=== PATIENT | female | born 1985 | race Two or more races ===

== ENCOUNTER 2019-06-22 13:21 | Emergency (ER) | payer OTHER ==
[~2019-06-22] VITALS: Ht 162.6 cm; Wt 57.3 kg
--- NOTE | 2019-06-22 13:50 | PHYS DOC ---
Past History Past Medical History: No Pertinent History Past Surgical History: No Surgical History Alcohol Use: Occasionally Adult General Chief Complaint Chief Complaint: Hemoptysis HPI HPI Patient is a 33 year old female who presents with complaint of coughing up blood. Patient states that her symptoms started shortly prior to arrival. 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 She states that she came to work not experiencing any known symptoms. Her previous exposure took place 3 weeks ago. She had COVID-19 testing done at that time which was negative. States that suddenly she started to cough up which she quantifies as large amounts of bright red blood. Denies any significant past medical history. Patient was brought to the emergency department immediately from the [facility]iatric [employer] for evaluation in the emergency department. Denies fevers, nausea, chest pain, shortness of breath, or abdominal pain. Review of Systems Review of Systems Constitutional: Denies fever or chills [] Eyes: Denies change in visual acuity, redness, or eye pain [] HENT: Denies nasal congestion or sore throat [] Respiratory: Hemoptysis, denies shortness of breath [] Cardiovascular: Denies chest pain or edema [] GI: Denies abdominal pain, nausea, vomiting, bloody stools or diarrhea [] : Denies dysuria or hematuria [] Musculoskeletal: Denies back pain or joint pain [] Integument: Denies rash or skin lesions [] Neurologic: Denies headache, focal weakness or sensory changes [] All other systems were reviewed and found to be within normal limits, except as documented in this note. Allergies Allergies Allergies Coded Allergies Type Severity Reaction Last Updated Verified No Known Drug Allergies 06/22/19 No Physical Exam Physical Exam Constitutional: Alert, afebrile, appears anxious but in no acute respiratory distress. [] HENT: Normocephalic, atraumatic, bilateral external ears normal, oropharynx moist, no oral exudates, nose normal. [] Eyes: PERRLA, EOMI, conjunctiva normal, no discharge. [] Neck: Normal range of motion, no tenderness, supple, no stridor. [] Cardiovascular: Tachycardia, regular rhythm, no murmur [] Lungs & Thorax: Bilateral breath sounds clear to auscultation [] Abdomen: Bowel sounds normal, soft, no tenderness, no masses, no pulsatile masses. [] Skin: Warm, dry, no erythema, no rash. [] Back: No tenderness, no CVA tenderness. [] Extremities: No tenderness, no cyanosis, no clubbing, ROM intact, no edema. [] Neurologic: Alert and oriented X 3, normal motor function, normal sensory function, no focal deficits noted. [] Current Patient Data Vital Signs Vital Signs Date Time Temp Pulse Resp B/P (MAP) Pulse Ox O2 Delivery O2 Flow Rate FiO2 06/22/19 13:21 98.6 109 28 139/79 (99) 100 Nasal Cannula Lab Results Laboratory Tests Test 06/22/19 13:35 06/22/19 13:45 White Blood Count 7.4 x10^3/uL Red Blood Count 4.42 x10^6/uL Hemoglobin 13.2 g/dL Hematocrit 39.0 % Mean Corpuscular Volume 88 fL Mean Corpuscular Hemoglobin 30 pg Mean Corpuscular Hemoglobin Concent 34 g/dL Red Cell Distribution Width 13.4 % Platelet Count 243 x10^3/uL Neutrophils (%) (Auto) 70 % Lymphocytes (%) (Auto) 23 % Monocytes (%) (Auto) 5 % Eosinophils (%) (Auto) 1 % Basophils (%) (Auto) 0 % Neutrophils # (Auto) 5.2 x10^3uL Lymphocytes # (Auto) 1.7 x10^3/uL Monocytes # (Auto) 0.4 x10^3/uL Eosinophils # (Auto) 0.1 x10^3/uL Basophils # (Auto) 0.0 x10^3/uL Sodium Level 137 mmol/L Potassium Level 3.4 mmol/L Chloride Level 101 mmol/L Carbon Dioxide Level 26 mmol/L Anion Gap 10 Blood Urea Nitrogen 11 mg/dL Creatinine 0.6 mg/dL Estimated GFR (Cockcroft-Gault) 116.6 BUN/Creatinine Ratio 18 Glucose Level 99 mg/dL Calcium Level 9.0 mg/dL Total Bilirubin 0.3 mg/dL Aspartate Amino Transf (AST/SGOT) 16 U/L Alanine Aminotransferase (ALT/SGPT) 18 U/L Alkaline Phosphatase 44 U/L Total Protein 8.4 g/dL Albumin 4.2 g/dL Albumin/Globulin Ratio 1.0 Serum Test, Qualitative Negative Lactic Acid Level 1.0 mmol/L EKG EKG Interpreted by me: Heart rate 95, sinus tachycardia, normal intervals, incomplete right bundle branch block, no acute ST/T wave abnormalities present [] Radiology/Procedures Radiology/Procedures 1 view AP chest x-ray interpreted by Dr. Flores, radiologist: No evidence of acute cardiopulmonary process [] Course & Med Decision Making Course & Med Decision Making Pertinent Labs and Imaging studies reviewed. (See chart for details) Despite hemoptysis, the patient denies any other acute symptoms at this time. X-ray imaging is negative for acute abnormality. Patient's blood work appears stable and vital signs are improving with IV fluids in the emergency department. Patient does admit anxiety regarding the presence of hemoptysis. Pulse oximetry is 99% on room air and patient denies any shortness of breath currently. Patient produced a scant amount of blood-tinged sputum in the emergency department. This was collected and sent for sputum culture. 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 Advised patient on self quarantine measures until results of testing return. Recommended return to the emergency department for any worsening symptoms. Patient voiced understanding and agreement with treatment plan. [] Dragon Disclaimer Dragon Disclaimer This electronic medical record was generated, in whole or in part, using a voice recognition dictation system. Departure Departure: Impression: Primary Impression: Hemoptysis Additional Impression: Exposure to COVID-19 virus Disposition: 01 HOME, SELF-CARE Condition: STABLE Referrals: PCP,UNKNOWN (PCP) Patient Instructions: Hemoptysis Additional Instructions: You are being screened for COVID-19 infection. Until results have been rece ived, it is recommended that you self quarantine at home including wearing a mask while at home and around close proximity of any individuals in the home. Your results should come back within the next 3 days. Monitor your symptoms closely and return to the emergency department if you develop any worsening passage of blood or develop shortness of breath, chest pain, fever, or any other worrisome symptoms. Scripts Doxycycline Hyclate (DOXYCYCLINE HYCLATE) 100 Mg Capsule 1 CAP PO BID, #14 CAP Prov: MARGARET DUPREE MD 06/22/19 Problem Qualifiers MARGARET DUPREE MD Jun 22, 2019 13:50
[2019-06-22 14:24] LABS: BASO % 0 % (0-3); EOS # 0.1 x10^3/uL (0.0-0.7); EOS % 1 % (0-3); HEMOGLOBIN 13.2 g/dL (12.0-15.5); LYMPH # 1.7 x10^3/uL (1.0-4.8); LYMPH % 23 % (24-48); MEAN CORPUSCULAR HEMOGLOBIN 30 pg (25-35); MEAN CORPUSCULAR HGB CONC 34 g/dL (31-37); MEAN CORPUSCULAR VOLUME 88 fL (79-100); MONO # 0.4 x10^3/uL (0.0-1.1); MONO % 5 % (0-9); NEUT # 5.2 x10^3uL (1.8-7.7); NEUT % 70 % (31-73); PLATELET COUNT 243 x10^3/uL (140-400); RED BLOOD COUNT 4.42 x10^6/uL (3.50-5.40); RED CELL DISTRIBUTION WIDTH 13.4 % (11.5-14.5); WHITE BLOOD COUNT 7.4 x10^3/uL (4.0-11.0)
[2019-06-22 14:27] LABS: CREATININE 0.6 mg/dL (0.6-1.0); GFR 116.6; POTASSIUM 3.4 mmol/L (3.5-5.1)
[2019-06-22 14:35] LABS: ALBUMIN 4.2 g/dL (3.4-5.0); TOTAL BILIRUBIN 0.3 mg/dL (0.2-1.0); TOTAL PROTEIN 8.4 g/dL (6.4-8.2)
[2019-06-22 14:42] LABS: PREG TEST PT QUAL NEGATIVE (NEG)
--- NOTE | 2019-06-22 15:10 | RAD ---
Single view of the chest. 06/22/2019 1:35 PM Indication: Hemoptysis Comparison: None Findings: There is no focal consolidation. There is no pleural effusion or pneumothorax. The cardiomediastinal silhouette and pulmonary vasculature are within normal limits. No acute osseous abnormalities are seen. Impression: No evidence of acute cardiopulmonary process. Electronically signed by: Ned Flores MD (06/22/2019 2:00 PM) [id number]
[2019-06-22] MEDS ORDERED: DOXY100C2 PO (15:13)
[2019-06-22 15:21] LABS: INFLUENZA A PATIENT NEGATIVE (NEGATIVE); INFLUENZA B PATIENT NEGATIVE (NEGATIVE)
[2019-06-22 15:45] VITALS: BP 126/72
--- NOTE | 2019-06-23 10:43 | EKG ---
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
== END 2019-06-22 15:45 | disposition home or self-care (01) ==
LOC: ER 13:21
DX: R04.2 Hemoptysis (principal); Z20.828 Contact with and (suspected) exposure to other viral communicable diseases
CPT/HCPCS: 36415; 71045; 80053; 83605; 84703; 85025; 87040; 87635; 87804; 87880; 93005; 99285-25